=== PATIENT | female | born 1970 | race Caucasian/White ===

== ENCOUNTER 2023-09-08 21:03 | Emergency (ER) | payer MEDICAID ==
[2023-09-08 21:06] VITALS: PULSE 102
== END 2023-09-09 06:15 | disposition left against medical advice (07) ==
LOC: ER 21:03 → EDBD 21:03 → ER 09-09 06:15
DX: R06.00 Dyspnea, unspecified (principal)
CPT/HCPCS: 93005

== ENCOUNTER 2023-12-06 14:07 | Emergency (ER) | payer MEDICAID ==
[~2023-12-06] VITALS: Ht 172.7 cm; Wt 86.3 kg
[2023-12-06 15:40] LABS: Basophils # (auto) 0.1 10 ^3/uL (0-0.2); Basophils % (auto) 1.1 % (0.0-2.0); Eosinophils # (auto) 0 10 ^3/uL (0-0.8); Eosinophils % (auto) 0.2 % (0.0-7.0); Hematocrit 40.2 % (36.0-46.0); Hemoglobin 14.1 g/dL (12.2-16.2); Lymphocytes % (auto) 18.1 % (10.0-50.0); Mean Corpuscular Hemoglobin 31.8 pg (28.0-32.0); Mean Corpuscular Volume 90.7 fL (80.0-100.0); Monocytes # (auto) 0.7 10 ^3/uL (0-1.3); Monocytes % (auto) 6.6 % (0.0-12.0); Neutrophils # (auto) 8.3 10 ^3/uL (1.6-8.6); Platelet Count (auto) 276 10^3/uL (140-450); Red Blood Cells 4.43 10^6/uL (4.0-5.20); Red Cell Distribution Width 12.8 % (11.8-14.3); White Blood Cell 11.2 10^3/uL (4.4-10.8)
[2023-12-06 15:55] LABS: Blood Alcohol < 3.0 mg/dL (<10)
[2023-12-06 15:57] LABS: Creatine Kinase IFCC 441 U/L (34-145)
[2023-12-06] MEDS: SODIUM CHLORIDE 0.9% 1,000 ML IV ONE (22:06)
[2023-12-06 22:13] VITALS: BP 125/80; RESP 24; TEMP 99.5; O2SAT 95
[2023-12-06 23:15] VITALS: PULSE 114
[2023-12-06 23:18] LABS: Chloride 113 mmol/L (98-107); Potassium 3.6 mmol/L (3.5-5.1); Sodium 143 mmol/L (136-145)
[2023-12-06 23:19] LABS: Anion Gap 10 (5-15); Calcium 10.7 mg/dL (8.7-10.4); Carbon Dioxide 20 mmol/L (20-30)
[2023-12-06 23:24] LABS: BUN/Creatinine Ratio 25.7 (10.0-20.0); Blood Urea Nitrogen 26 mg/dL (9-23); Glucose 115 mg/dL (74-106)
[2023-12-07 05:46] LABS: Amphetamine Screen, Urine Pos (NEGATIVE); Barbiturate Scree,Urine Neg (NEGATIVE); Benzodiazephine Screen, Urine Neg (NEGATIVE); Cannabinoid Screen, Urine Neg (NEGATIVE); Cocaine Screen, Urine Neg (NEGATIVE); Opiate Scree,Urine Neg (NEGATIVE); Phencyclidine Screen, Urine Neg (NEGATIVE)
== END 2023-12-07 05:36 | disposition left against medical advice (07) ==
LOC: EDBD 14:07 → ER 14:07 → EDUNIT# 14:07 → ER 12-07 05:36
DX: M62.82 Rhabdomyolysis (principal); R41.82 Altered mental status, unspecified; Z79.899 Other long term (current) drug therapy; Z59.00 Homelessness unspecified
CPT/HCPCS: 36415; 70450; 80048; 80307; 80320; 82550; 83880; 84484; 85025; 93005; 96360; 99284; J7030